=== PATIENT | male | born 1990 ===

== ENCOUNTER 2017-12-16 04:36 | Emergency (ER) | payer OTHER ==
[~2017-12-16 04:36] MED LIST: ACET-3017 PO; ACET500T68 PO; IBUP-2708 PO; OXYC-392 PO; OXYC-870 PO; OXYC10TA67 PO
--- NOTE | 2017-12-16 04:40 | ER Report ---
History and Physical Time Seen By MD: 04:39 HPI/ROS CHIEF COMPLAINT: Sore throat, difficulty swallowing HISTORY OF PRESENT ILLNESS: 27-year-old male presents to the ER complaining of severe throat pain and difficulty swallowing. He states he began with a very mild sore throat yesterday. It became much worse. He woke up in the middle of the night/early this morning with difficulty swallowing and severe throat pain. He notes no fever. He denies exposure to ill contacts. REVIEW OF SYSTEMS: Respiratory: No cough, no dyspnea. Cardiovascular: No chest pain, no palpitations. Gastrointestinal: No vomiting, no abdominal pain. Musculoskeletal: No back pain. Allergies: Coded Allergies: No Known Drug Allergies (Unverified , 08/18/16) Home Meds Active Scripts Oxycodone Hcl/Acetaminophen (PERCOCET 5-325 MG TABLET) 1 Each Tablet, 1 EACH PO Q4-6H Y for PAIN, #12 Prov:JUAN DAVID STARKS DO 12/16/17 Amoxicillin/Pot Clav 875-125 Mg Tab (AUGMENTIN 875-125 TABLET) 1 Each Tablet, 1 TAB PO Q12H for infection, #20 TAB TAKE ONE TABLET BY MOUTH EVERY 12 HOURS Prov:JUAN DAVID STARKS DO 12/16/17 Reviewed Nurses Notes: Yes Old Medical Records Reviewed: Yes Hx Smoking: No Smoking Status: Never Smoker Hx Substance Use Disorder: No Hx Alcohol Use: No Constitutional Vital Sign - Last 24 Hours 12/16/17 12/16/17 12/16/17 12/16/17 04:36 04:38 04:40 04:51 Temp 98.7 Pulse ??? 105 106 Resp 16 B/P (MAP) 144/96 (112) 144/96 Pulse Ox 97 96 O2 Delivery Room Air 12/16/17 12/16/17 12/16/17 12/16/17 05:22 05:30 05:36 05:51 Pulse 103 105 B/P (MAP) 138/94 (109) 132/87 (102) Pulse Ox 95 95 O2 Delivery Room Air Room Air 12/16/17 06:00 Pulse 107 B/P (MAP) 136/90 (105) Physical Exam General Appearance: The patient is alert, has no immediate need for airway protection and no current signs of toxicity. Vital signs stable, afebrile HEENT: Pupils equal and round no injection. TMs normal, oropharynx with gross erythema and exudate. There is bilateral tonsillar hypertrophy Respiratory: Chest is non tender, lungs are clear to auscultation. Cardiac: regular rate and rhythm Gastrointestinal: Abdomen is soft and non tender, no masses, bowel sounds normal. Musculoskeletal: Neck: Neck is supple and non tender. There is lymphadenopathy and tenderness in the right anterior cervical chain region Extremities have full range of motion and are non tender. Skin: No rashes or lesions. DIFFERENTIAL DIAGNOSIS: After history and physical exam differential diagnosis was considered for acute pharyngitis, exudative tonsillitis, strep pharyngitis, mononucleosis, peritonsillar abscess, lymphadenopathy Medical Decision Making ED Course/Re-evaluation Clinical Indication for ER IV: Hydration, IV Access ED Course Patient was admitted to an examination room. H&P was done. The differential diagnoses was considered. On clinical examination. Patient has acute pharyngitis. On clinical examination. There is no evidence of obstruction or peritonsillar abscess at this point. Patient will be treated with IV Unasyn. He is given Toradol, IV fluids, Zofran, Decadron, and fentanyl 100 g. He is feeling much better. He is eating to [employer]. We discharged on Augmentin and Percocet. He's advised to return to the ER for any worsening. He's advised to follow-up with ENT later today if possible. Decision to Disposition Date: Dec 16, 2017 Decision to Disposition Time: 05:11 Depart Departure Latest Vital Signs Vital Signs Date Time Temp Pulse Resp B/P (MAP) Pulse Ox O2 Delivery O2 Flow Rate FiO2 12/16/17 06:00 107 136/90 (105) 12/16/17 05:51 95 Room Air 12/16/17 04:40 98.7 16 Impression: Primary Impression: Acute pharyngitis Condition: Improved Disposition: HOME OR SELF-CARE Referrals: CRISTÓBAL PABLO JR, MD New Scripts Oxycodone Hcl/Acetaminophen (PERCOCET 5-325 MG TABLET) 1 Each Tablet 1 EACH PO Q4-6H Y for PAIN, #12 Prov: JUAN DAVID STARKS DO 12/16/17 Amoxicillin/Pot Clav 875-125 Mg Tab (AUGMENTIN 875-125 TABLET) 1 Each Tablet 1 TAB PO Q12H for infection, #20 TAB TAKE ONE TABLET BY MOUTH EVERY 12 HOURS Prov: JUAN DAVID STARKS DO 12/16/17 Patient Instructions: Pharyngitis (ED) Additional Instructions: Take ibuprofen 200 mg 3-4 tablets 3 times a day Follow-up with Dr. Cristóbal Pablo [phone] ENT specialist later today for evaluation of potential early peritonsillar abscess Problem Qualifiers Primary Impression: Acute pharyngitis Pharyngitis/tonsillitis etiology: unspecified etiology Qualified Codes: J02.9 - Acute pharyngitis, unspecified JUAN DAVID STARKS DO Dec 16, 2017 04:40
[2017-12-16] MEDS ORDERED: KETOROLAC 30 MG/ML VIAL IVP ONE (04:55)
[2017-12-16] MEDS ORDERED: DEXAMETHASONE SOD PHOS 10MG/ML IVP ONE (04:55)
[2017-12-16] MEDS ORDERED: ONDANSETRON 4 MG/2 ML VIAL IVP ONE (04:55)
[2017-12-16] MEDS ORDERED: NS(*) 0.9% 1000 ML BAG 1,000 ML IV ONE (04:55)
[2017-12-16] MEDS ORDERED: AMPICILLIN/SULBACT (*) 3 GM VL 3 GM in NS(*) 0.9% 100 ML BAG 100 ML IVPB ONE (04:55)
[2017-12-16] MEDS ORDERED: AMOX-559 PO (05:40)
[2017-12-16] MEDS ORDERED: OXYC-865 PO (05:40)
[2017-12-16] MEDS ORDERED: fentaNYL CITR 100 MCG/2 ML AMP IVP ONE (05:45)
[2017-12-16 06:00] VITALS: BP 136/90
[2017-12-16] MEDS ORDERED: oxyCODONE/ACETAMIN 5/325MG TH 2 TAB/BOTTLE PO ONE (06:05)
== END 2017-12-16 06:20 | disposition home or self-care (01) ==
LOC: ER 04:40
DX: J02.9 Acute pharyngitis, unspecified (principal)
CPT/HCPCS: 96365; 96375; 99283; J0295; J1100; J1885; J2405; J3010; J7030; J7050